=== PATIENT | female | born 1990 | race Caucasian/White ===

== ENCOUNTER → 2018-03-09 | Emergency (ER) | payer OTHER ==
[~2018-03-09] VITALS: Ht 157.4 cm; Wt 77.1 kg
[~2018-03-09] MED LIST: EPIPEN 2-P0.3 MG/0.3 IJ
== END ==
LOC: ED 12:31
DX: O26.891 Other specified pregnancy related conditions, first trimester (principal); R06.02 Shortness of breath; T78.1XXA Other adverse food reactions, not elsewhere classified, initial encounter; O99.211 Obesity complicating pregnancy, first trimester; E66.01 Morbid (severe) obesity due to excess calories; Z88.0 Allergy status to penicillin; Z88.2 Allergy status to sulfonamides; Z91.013 Allergy to seafood; Z91.018 Allergy to other foods; Z88.1 Allergy status to other antibiotic agents; Z3A.09 9 weeks gestation of pregnancy; Y92.9 Unspecified place or not applicable

== ENCOUNTER 2021-08-07 12:56 | Emergency (ER) | payer OTHER ==
[~2021-08-07] VITALS: Ht 157.4 cm; Wt 93.0 kg
[2021-08-07] MEDS ORDERED: EPIPEN 2-P0.3 MG/0.3 IJ (13:31)
== END 2021-08-07 13:34 | disposition home or self-care (01) ==
LOC: ED 12:56
DX: T63.441A Toxic effect of venom of bees, accidental (unintentional), initial encounter (principal); Z88.0 Allergy status to penicillin; Z88.2 Allergy status to sulfonamides; Z88.1 Allergy status to other antibiotic agents; Z91.013 Allergy to seafood; Z91.018 Allergy to other foods; Y92.89 Other specified places as the place of occurrence of the external cause